=== PATIENT | female | born 1985 | race African-American/Black ===

== ENCOUNTER 2023-01-27 09:41 | Emergency (ER) | payer OTHER ==
[~2023-01-27] VITALS: Ht 162.6 cm; Wt 80.7 kg
[2023-01-27 10:10] LABS: BASOPHILS # (AUTO) 0.01 K/uL (0.00-0.20); BASOPHILS % (AUTO) 0.2 % (0.0-5.0); EOSINOPHILS # (AUTO) 0.18 K/uL (0.00-0.70); EOSINOPHILS % (AUTO) 3.2 % (0.0-8.0); HEMATOCRIT 37.9 % (36-48); IMMATURE GRANULOCYTE ABSOLUTE 0.01 K/uL (0-1); LYMPHOCYTES # (AUTO) 2.6 K/uL (1.0-4.8); LYMPHOCYTES % (AUTO) 46.7 % (21.0-51.0); MEAN CORPUSCULAR HGB CONC 31.9 g/dL (32.0-36.0); MEAN CORPUSCULAR VOLUME 81.5 fL (79-99); MONOCYTES # (AUTO) 0.3 K/uL (0.1-1.0); MONOCYTES % (AUTO) 5.8 % (3.0-13.0); NEUTROPHILS # (AUTO) 2.5 K/uL (1.8-7.7); NEUTROPHILS % (AUTO) 43.9 % (40.0-77.0); PLATELET COUNT (AUTO) 364 K/uL (130-400); RED BLOOD CELL COUNT(AUTO) 4.65 MIL/uL (4.00-5.50); RED CELL DISTRIBUTION WIDTH 14.5 % (11.0-15.5); WHITE BLOOD COUNT (AUTO) 5.7 K/uL (4.8-10.8)
[2023-01-27 10:22] LABS: ALBUMIN 3.6 g/dL (3.5-5.0); BILIRUBIN,TOTAL 0.4 mg/dL (0.2-1.0); CREATININE 0.9 mg/dL (0.5-1.5); POTASSIUM 3.7 mmol/L (3.5-5.1); TOTAL PROTEIN, SERUM 7.7 g/dL (6.0-8.3)
[2023-01-27] MEDS ORDERED: DIAZEPAM 5 MG/ML 2 ML SYG IVP ONE (10:30)
[2023-01-27] MEDS ORDERED: ASPIRIN 325MG EC TAB PO ONE (10:30)
[2023-01-27 10:54] LABS: INR 0.94 (0.85-1.15); PROTHROMBIN TIME 10.9 SEC (9.6-11.6)
[2023-01-27] MEDS ORDERED: CYCL10TA16 PO (12:10)
[2023-01-27] MEDS ORDERED: NAPR-1192 PO (12:10)
[2023-01-27 12:49] VITALS: BP 113/69; PULSE 74; RESP 18; O2SAT 100
== END 2023-01-27 12:54 | disposition home or self-care (01) ==
LOC: EDH 09:41
DX: S29.011A Strain of muscle and tendon of front wall of thorax, initial encounter (principal); M62.838 Other muscle spasm; X58.XXXA Exposure to other specified factors, initial encounter; Y93.89 Activity, other specified; Y92.89 Other specified places as the place of occurrence of the external cause; Y99.8 Other external cause status
CPT/HCPCS: 99285; 96374; 71045; 84484; 80053; 83880; 85025; 85610; 36415; 93005; J3360